=== PATIENT | male | born 2000 | race Two or more races ===

== ENCOUNTER 2025-01-27 09:59 | Emergency (ER) | payer OTHER ==
[~2025-01-27] VITALS: Ht 180.3 cm; Wt 79.4 kg
[2025-01-27] MEDS ORDERED: ACETAMINOPHEN 500 MG GEL..CAP PO ONE (11:15)
[2025-01-27] MEDS ORDERED: GUAIFENESIN 200 MG/10 ML BLIST.PACK PO ONE (11:15)
[2025-01-27 11:36] LABS: BASO % 0.2 % (0.1-1.2); EOS # 0.00 (0.04-0.54); EOS % 0.0 % (0.7-7.0); LYMPH # 1.29 (1.18-3.74); LYMPH % 11.0 % (19.3-53.1); MEAN PLATELET VOLUME 9.00 fl (9.4-12.4); MONO # 1.31 (0.24-0.82); MONO % 11.2 % (4.7-12.5); NEUT # 9.06 (1.56-6.13); NEUT % 77.2 % (34.0-71.1); RED CELL DISTRIBUTION WIDTH 12.6 % (11.6-14.4)
[2025-01-27 11:51] LABS: URINE APPEARANCE Clear; URINE BILIRRUBIN Negative (NEGATIVE); URINE BLOOD Negative; URINE COLOR Yellow; URINE GLUCOSE Negative (NEGATIVE); URINE KETONE Negative (NEGATIVE); URINE LEUKOCYTE Negative; URINE NITRATE Negative; URINE PROTEIN Negative (NEGATIVE); URINE UROBILINOGEN 1.0 E.U./dl
[2025-01-27 11:55] LABS: URINE BACTERIA 6.0 uL (0.0-1933); URINE RBC 4.1 uL (0.0-20.8); URINE WBC 6.1 uL (0.0-23.2)
[2025-01-27 12:02] LABS: COVID-19 AG NEGATIVE (NEGATIVE)
[2025-01-27 12:08] LABS: URINE CAST 0.43 uL (0.0-1.40); URINE EPITHELIAL CELLS 0.7 uL (0.0-38.8)
== END 2025-01-27 14:13 | disposition home or self-care (01) ==
LOC: ER 09:59
PROVIDERS: General Practice
DX: J02.9 Acute pharyngitis, unspecified (principal); R50.9 Fever, unspecified; Z20.822 Contact with and (suspected) exposure to COVID-19